=== PATIENT | female | born 1980 | race Caucasian/White ===

== ENCOUNTER 2021-09-26 12:33 | Outpatient (CLI) | payer OTHER, SELFPAY ==
--- NOTE | 2021-09-26 12:49 | MM_ITS ---
WS: [id number] BILATERAL 3D TOMOSYNTHESIS DIGITAL SCREENING MAMMOGRAPHY WITH CAD CLINICAL INFORMATION: SCREENING HISTORY: Screening mammogram. No current complaints. COMPARISON: None. TECHNIQUE: Bilateral CC and MLO views. FINDINGS: Bilateral breast implants are mammographically intact. Scattered fibroglandular densities bilaterally. No suspicious focal mass, asymmetry, calcifications, or architectural distortion. No evidence of malignancy. MM/[id number] IMPRESSION: BI-RADS: 2-Benign FOLLOW UP: 1 Year Follow-up Recommend return to annual screening mammography.
== END 2021-09-26 12:34 | disposition home or self-care (01) ==
LOC: RAD 12:34
PROVIDERS: PCP Family Medicine; Visit Provider Family Medicine
DX: Z12.31 Encounter for screening mammogram for malignant neoplasm of breast (principal)
CPT/HCPCS: 77063; 77067

== ENCOUNTER → 2022-12-14 16:55 | Outpatient (BNVA) | payer OTHER, SELFPAY | PROVIDERS: PCP Family Medicine; Visit Provider Family Medicine | DX: R39.9 Unspecified symptoms and signs involving the genitourinary system (principal); N39.0 Urinary tract infection, site not specified | CPT/HCPCS: 81000 ==

== ENCOUNTER 2023-03-12 13:00 | Outpatient (CLI) | payer OTHER, SELFPAY ==
--- NOTE | 2023-03-12 13:03 | MM_ITS ---
WS: [id number] BILATERAL 3D TOMOSYNTHESIS DIGITAL SCREENING MAMMOGRAPHY WITH CAD CLINICAL INFORMATION: SCREENING HISTORY: Screening mammogram. No current complaints. COMPARISON: 2021 TECHNIQUE: Bilateral CC and MLO views. FINDINGS: Bilateral breast implants appear intact. Scattered fibroglandular densities bilaterally. No suspicious focal mass, asymmetry, calcifications, or architectural distortion. No evidence of malignancy. IMPRESSION: MM/[id number] BI-RADS: 2-Benign FOLLOW UP: 1 Year Follow-up Recommend return to annual screening mammography.
== END 2023-03-12 13:01 | disposition home or self-care (01) ==
LOC: RAD 13:01
PROVIDERS: PCP Family Medicine; Visit Provider Family Medicine
DX: Z12.31 Encounter for screening mammogram for malignant neoplasm of breast (principal)
CPT/HCPCS: 77063; 77067

== ENCOUNTER 2024-04-08 14:28 | Inpatient (IN) | payer OTHER, SELFPAY ==
--- NOTE | 2024-04-08 14:35 | ED.C_ITS ---
HPI - Psych 2 General: Chief Complaint: Psychiatric Symptoms Stated Complaint: 96 Time Seen by Provider: 04/08/24 14:28 Source: patient and police Limitations: no limitations History of Present Illness: 43-year-old female who is here with priscilla ce patient was placed under 96-hour hold by [facility] along with her she has been making multiple suicidal statements she told [facility] she wanted to walk out into traffic she is threatened to kill herself to her kids and her as well. No previous attempts in the past denies any worse improving factors. Associated symptoms: Reports depression and suicidal ideation Related Data Home Medications ?Medication ?Instructions ?Recorded ?Confirmed norgestimate-ethinyl estradiol 1 tab PO DAILY 04/08/24 04/08/24 0.18 mg/0.215mg/0.25mg-35 mcg(28)tablet (Tri-Sprintec (28)) Allergies Allergy/AdvReac Type Severity Reaction Status Date / Time No Known Allergies Allergy Verified 12/14/22 17:01 Review of Systems 2 Const: Denies: fever(s), chills, body aches or change in appetite ENMT: Denies: throat pain or dental pain Card: Denies: chest pain Resp: Denies: dyspnea GI: Denies: abdominal pain, nausea, vomiting or diarrhea Musc: Denies: neck pain or back pain Skin/Breast: Denies: rash Neuro: Denies: headache(s) Psych: Reports: depression and suicidal ideation PFS ED 2 PFSH: Social History Smoking and tobacco/nicotine status: never used tobacco/nicotine Physical Exam 2 Const: COMMON NORMALS: no acute distress, patient oriented x3 and healthy appearing HENMT: COMMON NORMALS: normocephalic and atraumatic HEAD & SCALP: n ormocephalic and atraumatic Neck/C-Spine: COMMON NORMALS: full ROM and supple Chest: COMMONS NORMALS: normal inspection of the chest Resp: COMMON NORMALS: normal respiratory effort Cardio: COMMON NORMALS: regular rate RATE: regular rate Extremity: COMMON NORMALS: normal to inspection and full ROM Neuro: COMMON NORMALS: patient oriented x3, moves all extremities and no focal motor deficits Psych: COMMON NORMALS: mental status grossly normal, Normal thought process present and cooperative THOUGHT PROCESS: Normal thought process present T HOUGHT CONTENT: Yes Suicidality present Skin: COMMON NORMALS: no rashes or lesions noted and no wounds GENERAL SKIN EXAM: no rashes or lesions noted Course 2 Vital Signs: Vital signs: Vital Signs Temperature 98.2 F 04/08/24 14:36 Pulse Rate 70 04/08/24 14:36 Respiratory Rate 18 04/08/24 14:36 Blood Pressure 146/82 04/08/24 14:36 Pulse Oximetry 99 04/08/24 14:36 Oxygen Delivery Me thod Room Air 04/08/24 14:36 [facility] - Psych Medical Decision Making Patient presents here with suicidal ideations she is on a 96-hour hold she is medically cleared spoke to Dr. Manning will admit to the psych [facility] Medical Records I reviewed the patient's medical records. Lab Data I reviewed the patient's lab results. 04/08/24 16:12 04/08/24 16:12 Laboratory Results WBC 8.98 10^3/uL (3.29-11.43) 04/08/24 16:12 RBC 4.83 10^6/uL (3.85-5.65) 04/08/24 16:12 Hgb 13.30 g/dL (11.27-16.99) 04/08/24 16:12 Hct 42.1 % (36-47) 04/08/24 16:12 MCV 87.2 fl (85-98) 04/08/24 16:12 MCH 27.5 pg (27-33) 04/08/24 16:12 MCHC 31.6 g/dL (30-55) 04/08/24 16:12 RDW 14.1 % (12.1-15.1) 04/08/24 16:12 Plt Count 296 10^3/cmm (157-399) 04/08/24 16:12 MPV 9.8 fL (7.4-10.4) 04/08/24 16:12 Neut % (Auto) 72.7 % 04/08/24 16:12 Lymph % (Auto) 22.7 % 04/08/24 16:12 [place] % (Auto) 3.8 % 04/08/24 16:12 Eos % (Auto) 0.1 % 04/08/24 16:12 Baso % (Auto) 0.4 % 04/08/24 16:12 Neut # (Auto) 6.52 10^3/uL (1.8-7.7) 04/08/24 16:12 Lymph # (Auto) 2.0 10^3/uL (0.8-4.8) 04/08/24 16:12 [place] # (Auto) 0.3 10^3/uL (0.2-0.9) 04/08/24 16:12 Eos # (Auto) 0.0 10^3/uL (0.0-0.8) 04/08/24 16:12 Baso # (Auto) 0.0 10^3/uL (0.0-0.1) 04/08/24 16:12 Nucleated RBC % (auto) 0 % 04/08/24 16:12 Nucleated RBCs # 0.0 /100WBC 04/08/24 16:12 No radiology studies performed this visit Discharge Plan Discharge Patient Disposition: Admitted As Inpatient Clinical Impression: Suicidal ideation Condition: Stable Prescriptions: No Action norgestimate-ethinyl estradiol [Tri-Sprintec (28)] 0.18/0.215/0.25 mg-35 mcg (28) tablet 1 tab PO DAILY Referrals: China Walton MD [Primary Care Provider] - Print Language: [place]ese Coding Level of Care Code ED Manager Program for [facility] Kristine
[2024-04-08 14:36] VITALS: BP 146/82; PULSE 70; RESP 18; TEMP 36.8; O2SAT 99
[2024-04-08 14:37] VITALS: BMI 23.7
--- NOTE | 2024-04-08 15:26 | PC.NURSE ---
96 hour hold rights read and reviewed with patient. Patient very tearful at this time, but verbalized understandings. Copy of rights given to patient.
[2024-04-08] MEDS: LORazepam 1 mg Tablet PO (15:46)
[2024-04-08 16:20] LABS: Basophils % 0.4 %; Eosinophils % 0.1 %; Hematocrit 42.1 % (36-47); Lymphocytes % 22.7 %; Mean Corpuscular HGB Conc 31.6 g/dL (30-55); Mean Corpuscular Hemoglobin 27.5 pg (27-33); Mean Corpuscular Volume 87.2 fl (85-98); Mean Platelet Volume 9.8 fL (7.4-10.4); Monocytes # 0.3 10^3/uL (0.2-0.9); Monocytes % 3.8 %; Neutrophils # 6.52 10^3/uL (1.8-7.7); Neutrophils % 72.7 %; Nucleated Red Blood Cells % 0 %; Platelet Count 296 10^3/cmm (157-399); Red Blood Count 4.83 10^6/uL (3.85-5.65); Red Cell Distribution Width 14.1 % (12.1-15.1); White Blood Count 8.98 10^3/uL (3.29-11.43)
--- NOTE | 2024-04-08 16:24 | PC.NURSE ---
CLEMENCIA FROM SECURITY NOTIFIED THIS NURSE THAT HE WAS LOCKING PT WALLET UP IN SECURITY OFFICE DUE TO LARGE AMOUNT OF MONEY FOUND.
[2024-04-08 16:39] LABS: Alanine Aminotransferase 9 U/L (0-33); Albumin Level 4.4 g/dL (3.5-5.2); Alkaline Phosphatase 83 U/L (35-105); Anion Gap 14.3 (5-19); Aspartate Amino Transferase 11 U/L (0-32); Blood Urea Nitrogen 13 mg/dL (6-20); Calcium 9.6 mg/dL (8.5-10.5); Carbon Dioxide 26 mmol/L (22-29); Chloride 102 mmol/L (98-107); Creatinine Clr Calc Pharmacy 118.8105; Globulin 3.4 g/dL (1.3-4.6); Glomerular Filtration Rate 109.1 mL/min (90-130); Glucose 112 mg/dL (65-115); Osmolality Calculated 289 mOsm/kg (285-295); Potassium 3.3 mmol/L (3.5-5.1); Salicylate 4.1 mg/dL (3-10); Sodium 139 mmol/L (136-145); Total Bilirubin 0.5 mg/dL (0.15-1.2); Total Protein 7.8 g/dL (6.6-8.7)
[2024-04-08 16:40] LABS: Acetaminophen < 5.0 ug/mL (10-30); Alcohol Level < 10 mg/dL (0-10)
[2024-04-08 18:10] LABS: HCG Qualitative Urine. Negative (Negative)
[2024-04-08 18:14] VITALS: BP 144/81; PULSE 74; O2SAT 100
[2024-04-08 18:19] VITALS: BP 142/82; PULSE 79; RESP 16; TEMP 37.1; O2SAT 100
[2024-04-08 18:29] LABS: Amphetamines Screen Urine Negative (Negative); Barbiturates Screen Urine Negative (Negative); Benzodiazepines Screen Urine Negative (Negative); Cocaine Screen Urine Negative (Negative); Opiate Screen Urine Negative (Negative); PCP Screen Urine Negative (Negative); THC Screen Urine Negative (Negative)
--- NOTE | 2024-04-08 18:56 | PC.ADMIT ---
[email or web address] [id number] Admission Note: The patient,Elaina Gage,43 y/o, was given written information regarding hospital policies, unit procedures and contact persons. Patient's smoking status: never smoked. Vital Signs - 8 hr 04/08/24 14:36 04/08/24 18:14 04/08/24 18:19 Temperature 98.2 F 98.8 F Pulse Rate 70 74 79 Respiratory Rate 18 16 Blood Pressure 146/82 144/81 142/82 Pulse Oximetry 99 100 100 Oxygen Delivery Method Room Air Room Air 04/08/24 18:22 Temperature Pulse Rate Respiratory Rate Blood Pressure Pulse Oximetry Oxygen Delivery Method Room Air ADMITTED FROM [facility] VIA WHEECHAIR, SECURITY AND ER STAFF AT 1815 ON 96 HOUR INVOLUNTARY HOLD THAT ENDS ON 04/19/24@1435. PT STATES SHE IS HERE DUE TO HER DOING A WELLNESS CHECK ON ME BECAUSE I WAS TAKING A DRIVE. DENIES PAIN. DENIES SI/HI AND AVH AT THIS TIME. PT REPORTS SHE HAS NOT BEEN IN A PSYCHIATRIC UNIT BEFORE. UDS NEGATIVE. PT IS ALERT AND ORIENTATED. SUPPORT VOICED.
[2024-04-08] MEDS: blistex lip oint 7 gm Tube 1 APPLIC TOPICAL (19:44)
[2024-04-08 22:00] VITALS: BP 122/91; PULSE 74; RESP 16; TEMP 37.2; O2SAT 99
[2024-04-09 06:00] VITALS: BP 119/71; PULSE 110; RESP 18; TEMP 36.9; O2SAT 97
--- NOTE | 2024-04-09 13:22 | P.NPUHP_ITS ---
Providers/Chief Complaint 2 Admitting Physician: Zan Manning MD Primary Care Provider: China Walton MD Chief Complaint: 96 HPI NPU History of Present Illness Elaina Gage is a 43 year old female who presented to the emergency department with the following report: Chief Complaint: Psychiatric Symptoms Stated Complaint: 96 Time Seen by Provider: 04/08/24 14:28 Source: patient and police Limitations: no limitations History of Present Illness: 43-year-old female who is here with police patient was placed under 96-hour hold by [facility] along with her she has been making multiple suicidal statements she told [facility] she wanted to walk out into traffic she is threatened to kill herself to her kids and her as well. No previous attempts in the past denies any worse improving factors. Associated symptoms: Reports depression and suicidal ideation. She was admitted to the neuropsychiatric unit for definitive treatment of those issues. She is unknown to [facility] psychiatric services except for some [facility] contacts over the past few days. Otherwise no inpatient or outpatient services. She presented to the emergency department with a negative UDS and unremarkable BAL. Her labs were unremarkable except for she has not had a urinalysis post at this point. But does have a history of UTIs. She presented today reporting: Chief complaint Brought to the hospital following a crisis hotline call due to concerns about potential suicidal behavior after making comments about not wanting to be around anymore and an incident involving melatonin pills. History of the present complaint The patient reports being brought to the hospital after an incident involving her and a crisis hotline. She describes leaving for a drive after a bad day at work and ongoing issues with her . Upon returning home, she was picked up by authorities, although she does not recall all the details. The patient mentions that her called the crisis hotline, which led to her being taken to the hospital. She states that the authorities believed she had attempted to take pills, but she clarifies that she was only trying to take melatonin for sleep. She explains that she had put multiple pills in her hand, which was misinterpreted as an overdose attempt. The patient acknowledges making comments earlier in the week that could be interpreted as suicidal, such as not wanting to be around or deal with her current situation. These comments were made on a Friday, and the incident with the pills occurred on the following Friday. She emphasizes that she did not intend to harm herself and that her actions were misunderstood. The patient describes ongoing conflicts with her , which have been a source of stress and emotional distress. She expresses a desire to leave the house to clear her head, which was not permitted by her family, leading to further tension. The patient has a history of taking Prozac for six months several years ago, during a period of depression related to her father's . She has not been on any other mental health medications since then and denies any significant history of anxiety or depression outside of that period. She reports occasional anxiety in crowded social settings, which has developed over the past four to five years. The patient denies any history of substance abuse, legal issues, or significant mental health diagnoses in her family. She also mentions experiencing nightmares and flashbacks related to her father's , which involved performing CPR after he suffered a heart attack. These episodes have decreased over time but can be triggered by certain emotional situations. The patient describes her current mood as sad but denies any current thoughts of self-harm or harm to others. She also denies experiencing paranoia, hallucinations, or delusions. The patient lives with her and youngest son and has a stable work history, having worked at the [employer] for 22 years. She reports no significant medical history aside from thyroid problems and endometriosis, which is managed with control. She has not been taking her control since being admitted to the hospital. Mental health history Previously on Prozac for approximately 6 months due to depression related to father's , which involved traumatic experiences such as performing CPR. Reports no significant mental health issues outside of this period, except for anxiety in crowded places over the past 4-5 years. No history of psychiatric hospitalization or outpatient treatment. No family history of mental health issues reported. Recent incident involved misunderstanding over taking melatonin, leading to a 96-hour hold after making comments on April 05, 2024, that could be interpreted as suicidal. Denies any intention to harm self. Social history for 19 years, with two children aged 25 and 14. Lives with and youngest son. 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 No smoking or vaping. Consumes alcohol occasionally, with a glass of wine every once in a while, but no history of regular drinking. No history of cannabis or other drug use. No legal issues or history of rehabilitation. Engages in cheerleading and dance club activities in the past. Identifies as heterosexual. Has three dogs and a stray cat. Meds NPU Home Medications ?Medication ?Instructions ?Recorded ?Confirmed ?Last Taken ?Type norgestimate-ethinyl estradiol 1 tab PO DAILY 04/08/24 04/08/24 Unknown History 0.18 mg/0.215mg/0.25mg-35 mcg(28)tablet (Tri-Sprintec (28)) Allergies Allergy/AdvReac Type Severity Reaction Status Date / Time No Known Allergies Allergy Verified 12/14/22 17:01 PFS NPU 2 PFSH: Social History Smoking and tobacco/nicotine status: never used tobacco/nicotine Mental Status Exam 2 MSE Comments: This is a well-nourished, well-developed white female in hospital scrubs with adequate grooming and eye contact. No abnormal movements except for mild to moderate psychomotor retardation. Cooperative with exam in mild to moderate distress. Speech was decreased rate and volume. Mood described as struggling and frustrated, affect congruent, tearful and subdued. Thought process organized. Thought content: Patient denied suicidal or homicidal ideation currently, there were no delusions reported but some paranoia noted, she denied auditory or visual hallucinations. Patient made comments about not wanting to be here anymore, which were interpreted as suicidal, but insists it was an overreaction. Experiences anxiety in social settings, particularly in crowded places, for the past four to five years. Reports feeling sad and has a history of depression, previously treated with Prozac. Uses melatonin for sleep. Stressors include conflict with and issues at work. Describes mood as sad. Attention and concentration were intact and memory appeared mostly reliable but at times may be intentionally evasive but none were formally tested. She is alert and oriented x 3. Her insight was limited. Her judgment is impaired her impulse control appeared limited versus impaired Vitals/I&O/Wt Last Vital Signs Temp 98.5 F 04/09/24 06:00 Pulse 110 H 04/09/24 06:00 Resp 18 04/09/24 06:00 BP 119/71 04/09/24 06:00 Pulse Ox 97 04/09/24 06:00 O2 Del Method Room Air 04/09/24 06:00 Weight last 48 hrs Weight 66.678 kg Data NPU 04/08/24 16:12 04/08/24 16:12 A&P Assessment and plan (1) Suicidal ideation: (2) Parent-child relational problem: (3) Partner relational problem: (4) History of depression: (5) Anxiety disorder: (6) PTSD (post-traumatic stress disorder): Plan This is a 43-year-old white female with a limited history of mental health treatment but significant indication of some posttraumatic reaction to the of their father a few years ago and now in a conflictual relationship with her which has led to some interactions this week that she acknowledges making threatening comments and now she is here on a 96-hour hold. The patient indicates that the situation leading to the patient's hospitalization may have been overblown, as the patient contends that the incident involving melatonin was misinterpreted. The patient acknowledges making comments on Friday that could be interpreted as suicidal, but insists there was no intent to harm herself. There is a history of conflict with her , which may have contributed to the current situation. The patient has a past history of depression, for which she was treated with Prozac for six months, but no current diagnosis of depression or anxiety was explicitly stated during the encounter. The psychologist will review the affidavit and gather collateral information to assess the validity of the claims leading to the patient's hold. 1. Continue current medications. Consider whether an antidepressant is indicated. 2. Encourage individual, group and milieu therapy. 3. Continue every 15 minute checks for safety. 4. Obtain collateral information. 5. Evaluate for safety against the backdrop of the 96-hour hold. 6. Evaluate whether a child line is indicated. PDMP PDMP Reviewed: Not Reviewed Involuntary Hold Information 2 96 Hour Hold: 96 Hour Involuntary Admission: No 96 Hour Hold Ending Date: 0 04/14/24 96 Hour Hold Ending Time: 14:35 Other Hold: Hold End Date: 04/14/24 Attestations NPU 2 Medical Necessity Statement*: Inpatient hospitalization is medically necessary and the clinically appropriate intervention at this time. We will monitor medications and make changes as indicated. We will monitor/initiate medications and make changes as indicated. She will be in the hospital for over 2 midnights. Likely length of stay 2 to 4 days. Coding Level of Care Code Acute Code for Chg Fwd Diagnoses Suicidal ideation R45.851 Parent-child relational problem Z62.820 Partner relational problem Z63.0 History of depression Z86.59 Anxiety disorder F41.9 PTSD (post-traumatic stress disorder) F43.10
[2024-04-09 14:00] VITALS: BP 150/89; PULSE 80; RESP 16; TEMP 37.2; O2SAT 98
[2024-04-09 22:00] VITALS: BP 124/80; PULSE 74; RESP 16; TEMP 37; O2SAT 99
[2024-04-10] MEDS: ibuprofen 600 mg Tablet PO ×2 (05:54→19:25)
[2024-04-10 06:00] VITALS: BP 112/65; PULSE 81; RESP 16; TEMP 36.7; O2SAT 97
--- NOTE | 2024-04-10 08:36 | P.NPUPN_ITS ---
Subjective NPU 2 Subjective: Patient presented today reporting that she is doing fine. We discussed that after reviewing her affidavits and speaking with her there are significant concerns about how accurate and forthright she was being when her reports of what actually transpired. We discussed the fact that the treatment team believes that she did say some things and act in a way that was probably concerning which led to her 14-year-old feeling the need to intervene to avoid her taking some medication. And that this is something we need to explore from the standpoint of whether he needs to have a child line. She continues to report no need for medication denies any significant issues reporting this has been overblown. Mental Status Exam 2 MSE Comments: This is a well-nourished, well-developed white female in hospital scrubs with adequate grooming and eye contact. No abnormal movements except for mild to moderate psychomotor retardation. Cooperative with exam in mild to moderate distress. Speech was decreased rate and volume. Mood described as struggling and frustrated, affect congruent, tearful and subdued. Thought process organized. Thought content: Patient denied suicidal or homicidal ideation currently, there were no delusions reported but some paranoia noted, she denied auditory or visual hallucinations. Patient made comments about not wanting to be here anymore, which were interpreted as suicidal, but insists it was an overreaction. Experiences anxiety in social settings, particularly in crowded places, for the past four to five years. Reports feeling sad and has a history of depression, previously treated with Prozac. Uses melatonin for sleep. Stressors include conflict with and issues at work. Describes mood as sad. Attention and concentration were intact and memory appeared mostly reliable but at times may be intentionally evasive but none were formally tested. She is alert and oriented x 3. Her insight was limited. Her judgment is impaired her impulse control appeared limited versus impaired Vitals/I&O/Wt Last Vital Signs Temp 98.1 F 04/10/24 06:00 Pulse 81 04/10/24 06:00 Resp 16 04/10/24 06:00 BP 112/65 04/10/24 06:00 Pulse Ox 97 04/10/24 06:00 O2 Del Method Room Air 04/09/24 14:00 Weight last 48 hrs Weight 64.682 kg Data NPU 04/08/24 16:12 04/08/24 16:12 A&P Assessment and plan (1) Suicidal ideation: (2) Parent-child relational problem: (3) Partner relational problem: (4) History of depression: (5) Anxiety disorder: (6) PTSD (post-traumatic stress disorder): Plan This is a 43-year-old white female with a limited history of mental health treatment but significant indication of some posttraumatic reaction to the of their father a few years ago and now in a conflictual relationship with her which has led to some interactions this week that she acknowledges making threatening comments and now she is here on a 96-hour hold. The patient indicates that the situation leading to the patient's hospitalization may have been overblown, as the patient contends that the incident involving melatonin was misinterpreted. The patient acknowledges making comments on Friday that could be interpreted as suicidal, but insists there was no intent to harm herself. There is a history of conflict with her , which may have contributed to the current situation. The patient has a past history of depression, for which she was treated with Prozac for six months, but no current diagnosis of depression or anxiety was explicitly stated during the encounter. The psychologist will review the affidavit and gather collateral information to assess the validity of the claims leading to the patient's hold. 1. Continue current medications. Consider whether an antidepressant is indicated. 2. Encourage individual, group and milieu therapy. 3. Continue every 15 minute checks for safety. 4. Obtain collateral information. 5. Evaluate for safety against the backdrop of the 96-hour hold. 6. Evaluate whether a child line is indicated. PDMP PDMP Reviewed: Not Reviewed Involuntary Hold Information 2 96 Hour Hold: 96 Hour Involuntary Admission: No 96 Hour Hold Ending Date: 0 04/14/24 96 Hour Hold Ending Time: 14:35 Other Hold: Hold End Date: 04/14/24 Attestations NPU 2 Medical Necessity Statement*: Inpatient hospitalization is medically necessary and the clinically appropriate intervention at this time. We will monitor medications and make changes as indicated. We will monitor/initiate medications and make changes as indicated. Likely length of stay 2 to 4 days. Coding Level of Care Code Acute Code for Chg Fwd Diagnoses Suicidal ideation R45.851 Parent-child relational problem Z62.820 Partner relational problem Z63.0 History of depression Z86.59 Anxiety disorder F41.9 PTSD (post-traumatic stress disorder) F43.10
[2024-04-10] MEDS: acetaminophen 325 mg Tablet 650 MG PO (11:19)
[2024-04-10 14:00] VITALS: BP 113/76; PULSE 80; RESP 17; TEMP 36.5; O2SAT 98
[2024-04-10] MEDS: NORGESTIMATE PO (16:03)
[2024-04-10] MEDS: ETHINYL ESTRADIOL PO (16:03)
[2024-04-10 21:58] VITALS: BP 115/79; PULSE 83; RESP 16; TEMP 36.9; O2SAT 97
[2024-04-11 06:00] VITALS: BP 111/65; PULSE 93; RESP 16; TEMP 37.1; O2SAT 97
[2024-04-11] MEDS: ETHINYL ESTRADIOL PO (08:17)
[2024-04-11] MEDS: NORGESTIMATE PO (08:17)
[2024-04-11 14:00] VITALS: BP 113/73; PULSE 85; RESP 17; TEMP 36.8; O2SAT 100
--- NOTE | 2024-04-11 14:28 | P.NPUPN_ITS ---
Subjective NPU 2 Subjective: 43-year-old female admitted involuntaril y after having had pills in her hands with the patient making threats to overdose on these pills. The patient had stated that these were comments were overblown. 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 She had stated that she had become upset by this information but reports that she is willing to consider counseling but is not having thoughts of harming herself. She had acknowledged having said stupid things . The patient did not elicit further what she had said to her son that had caused him to feel the need to grab the medications out of her hand. She had reported no need to take medications at this time for depression. She had reported having a conversation with her's 15-year-old son on a daily basis while here. She had expressed hope that she could start psychotherapy again to help her manage her difficult situation with her . Mental Status Exam 2 MSE Comments: This is a well-nourished, well-developed white female in hospital scrubs with adequate grooming and eye contact. No abnormal movements except for mild psychomotor retardation. She was cooperative with exam in milddistress. Her speech was decreased in rate and volume. Mood described as okay. Her affect was mildly restricted. Thought process was linear and organized. Thought content: Patient denied suicidal or homicidal ideation currently. There were no evidence of delusional thinking. She denied auditory or visual hallucinations. She denied any suicidal or homicidal ideation. Attention and concentration were intact and memory appeared mostly reliable but at times may be intentionally evasive but none were formally tested. She is alert and oriented x 3. Her insight was limited. Her judgment is impaired her impulse control appeared guarded at this time. Vitals/I&O/Wt Last Vital Signs Temp 98.7 F 04/11/24 06:00 Pulse 93 04/11/24 06:00 Resp 16 04/11/24 06:00 BP 111/65 04/11/24 06:00 Pulse Ox 97 04/11/24 06:00 O2 Del Method Room Air 04/09/24 14:00 Weight last 48 hrs Weight 64.682 kg Data NPU 04/08/24 16:12 04/08/24 16:12 A&P Assessment and plan (1) Suicidal ideation: (2) Parent-child relational problem: (3) Partner relational problem: (4) History of depression: (5) Anxiety disorder: (6) PTSD (post-traumatic stress disorder): Plan This is a 43-year-old white female with a limited history of mental health treatment but significant indication of some posttraumatic reaction to the of their father a few years ago and now in a conflictual relationship with her which has led to some interactions this week that she acknowledges making threatening comments and now she is here on a 96-hour hold. The patient indicates that the situation leading to the patient's hospitalization may have been overblown, as the patient contends that the incident involving melatonin was misinterpreted. The patient acknowledges making comments on Friday that could be interpreted as suicidal, but insists there was no intent to harm herself. There is a history of conflict with her , which may have contributed to the current situation. The patient has a past history of depression, for which she was treated with Prozac for six months, but no current diagnosis of depression or anxiety was explicitly stated during the encounter. The psychologist will review the affidavit and gather collateral information to assess the validity of the claims leading to the patient's hold. 1. Continue current medications. Consider whether an antidepressant is indicated. 2. Encourage individual, group and milieu therapy. 3. Continue every 15 minute checks for safety. 4. Obtain collateral information. 5. Evaluate for safety against the backdrop of the 96-hour hold. 6. Evaluate whether a child line is indicated. PDMP PDMP Reviewed: Not Reviewed Involuntary Hold Information 2 96 Hour Hold: 96 Hour Involuntary Admission: No 96 Hour Hold Ending Date: 0 04/14/24 96 Hour Hold Ending Time: 14:35 Other Hold: Hold End Date: 04/14/24 Attestations NPU 2 Medical Necessity Statement*: Inpatient hospitalization is medically necessary and the clinically appropriate intervention at this time. We will monitor medications and make changes as indicated. We will monitor/initiate medications and make changes as indicated. Likely length of stay 2 to 4 days. Coding Level of Care Code Acute Code for Chg Fwd Diagnoses Suicidal ideation R45.851 Parent-child relational problem Z62.820 Partner relational problem Z63.0 History of depression Z86.59 Anxiety disorder F41.9 PTSD (post-traumatic stress disorder) F43.10
[2024-04-11 22:00] VITALS: BP 120/75; PULSE 85; RESP 16; TEMP 37; O2SAT 95
[2024-04-12 06:00] VITALS: BP 113/61; PULSE 84; RESP 16; TEMP 37.1; O2SAT 98
[2024-04-12] MEDS: NORGESTIMATE PO (08:29)
[2024-04-12] MEDS: ETHINYL ESTRADIOL PO (08:29)
[2024-04-12 14:00] VITALS: BP 138/78; PULSE 76; RESP 16; TEMP 36.9; O2SAT 93
--- NOTE | 2024-04-12 14:11 | P.NPUDS_ITS ---
Diagnoses at Discharge Discharge Diagnosis (1) Suicidal ideation: Status: Acute (2) Parent-child relational problem: Status: Acute (3) Partner relational problem: Status: Acute (4) History of depression: Status: Acute (5) Anxiety disorder: Status: Acute (6) PTSD (post-traumatic stress disorder): Status: Acute Reason for Visit Reason for Visit: 96 Brief History: History of Present Illness Elaina Gage is a 43 year old female who presented to the emergency department with the following report: Chief Complaint: Psychiatric Symptoms Stated Complaint: 96 Time Seen by Provider: 04/08/24 14:28 Source: patient and police Limitations: no limitations History of Present Illness: 43-year-old female who is here with priscilla ce patient was placed under 96-hour hold by [facility] along with her she has been making multiple suicidal statements she told [facility] she wanted to walk out into traffic she is threatened to kill herself to her kids and her as well. No previous attempts in the past denies any worse improving factors. Associated symptoms: Reports depression and suicidal ideation. She was admitted to the neuropsychiatric unit for definitive treatment of those issues. She is unknown to [facility] psychiatric services except for some [facility] contacts over the past few days. Otherwise no inpatient or outpatient services. She presented to the emergency department with a negative UDS and unremarkable BAL. Her labs were unremarkable except for she has not had a urinalysis post at this point. But does have a history of UTIs. She presented today reporting: Chief complaint Brought to the hospital following a crisis hotline call due to concerns about potential suicidal behavior after making comments about not wanting to be around anymore and an incident involving melatonin pills. History of the present complaint The patient reports being brought to the hospital after an incident involving her and a crisis hotline. She describes leaving for a drive after a bad day at work and ongoing issues with her . Upon returning home, she was picked up by authorities, although she does not recall all the details. The patient mentions that her called the crisis hotline, which led to her being taken to the hospital. She states that the authorities believed she had attempted to take pills, but she clarifies that she was only trying to take melatonin for sleep. She explains that she had put multiple pills in her hand, which was misinterpreted as an overdose attempt. The patient acknowledges making comments earlier in the week that could be interpreted as suicidal, such as not wanting to be around or deal with her current situation. These comments were made on a Friday, and the incident with the pills occurred on the following Friday. She emphasizes that she did not intend to harm herself and that her actions were misunderstood. The patient describes ongoing conflicts with her , which have been a source of stress and emotional distress. She expresses a desire to leave the house to clear her head, which was not permitted by her family, leading to further tension. The patient has a history of taking Prozac for six months several years ago, during a period of depression related to her father's . She has not been on any other mental health medications since then and denies any significant history of anxiety or depression outside of that period. She reports occasional anxiety in crowded social settings, which has developed over the past four to five years. The patient denies any history of substance abuse, legal issues, or significant mental health diagnoses in her family. She also mentions experiencing nightmares and flashbacks related to her father's , which involved performing CPR after he suffered a heart attack. These episodes have decreased over time but can be triggered by certain emotional situations. The patient describes her current mood as sad but denies any current thoughts of self-harm or harm to others. She also denies experiencing paranoia, hallucinations, or delusions. The patient lives with her and youngest son and has a stable work history, having worked at the [employer] office for 22 years. She reports no significant medical history aside from thyroid problems and endometriosis, which is managed with control. She has not been taking her control since being admitted to the hospital. Mental health history Previously on Prozac for approximately 6 months due to depression related to father's , which involved traumatic experiences such as performing CPR. Reports no significant mental health issues outside of this period, except for anxiety in crowded places over the past 4-5 years. No history of psychiatric hospitalization or outpatient treatment. No family history of mental health issues reported. Recent incident involved misunderstanding over taking melatonin, leading to a 96-hour hold after making comments on April 05, 2024, that could be interpreted as suicidal. Denies any intention to harm self. Social history for 19 years, with two children aged 25 and 14. Lives with and youngest son. 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 No smoking or vaping. Consumes alcohol occasionally, with a glass of wine every once in a while, but no history of regular drinking. No history of cannabis or other drug use. No legal issues or history of rehabilitation. Engages in cheerleading and dance club activities in the past. Identifies as heterosexual. Has three dogs and a stray cat. Hospital Course Hospital Course During the hospitalization, the patient had routine laboratory studies which were within normal limits except for a few outliers.? Additionally, there was a general medical evaluation which was also within normal limits and revealed no new acute processes.? At the time of discharge, lethality was denied and mood was improving. She was agreeable to trial of Lexapro to target depression and anxiety on the day of discharge. ? Mood and anxiety were well managed.? The patient endorsed a plan to avoid all drugs of abuse and follow up with the aftercare recommendations of the treatment team.? The patient was evaluated and deemed to be absent credible lethality and had achieved the maximum benefit from an inpatient hospitalization, and so was discharged. ? Involuntary Hold Information 96 Hour Hold: 96 Hour Involuntary Admission: No 96 Hour Hold Ending Date: 04/14/24 96 Hour Hold Ending Time: 14:35 Other Hold: Hold End Date: 04/14/24 Mental Status Exam MSE Comments: This is a well-nourished, well-developed white female in hospital scrubs with adequate grooming and eye contact. No abnormal movements except for mild psychomotor retardation. She was cooperative with exam in no acute distress. Her speech was normal in rate and volume. Mood described as better. Her aff ect was brighter at the time of discharge. Thought process was linear and organized. Thought content: Patient denied suicidal or homicidal ideation currently. There were no evidence of delusional thinking. She denied auditory or visual hallucinations. She denied any suicidal or homicidal ideation. Attention and concentration were intact and memory appeared mostly reliable but at times may be intentionally evasive but none were formally tested. She is alert and oriented x 3. Her insight was limited. Her judgment is fair. Her impulse control appeared adequate at the time of discharge. Discharge Data Studies Completed and Pending: Laboratory Results WBC 8.98 10^3/uL (3.2 9-11.43) 04/08/24 16:12 RBC 4.83 10^6/uL (3.8 5-5.65) 04/08/24 16:12 Hgb 13.30 g/dL (11.27 -16.99) 04/08/24 16:12 Hct 42.1 % (36-47) 04/08/24 16:12 MCV 87.2 fl (85-98) 04/08/24 16:12 MCH 27.5 pg (27-33) 04/08/24 16:12 MCHC 31.6 g/dL (30-55) 04/08/24 16:12 RDW 14.1 % (12.1-15.1 ) 04/08/24 16:12 Plt Count 296 10^3/cmm (157 -399) 04/08/24 16:12 MPV 9.8 fL (7.4-10.4) 04/08/24 16:12 Neut % (Auto) 72.7 % 04/08/24 16:12 Lymph % (Auto) 22.7 % 04/08/24 16:12 Callaway % (Auto) 3.8 % 04/08/24 16:12 Eos % (Auto) 0.1 % 04/08/24 16:12 Baso % (Auto) 0.4 % 04/08/24 16:12 Neut # (Auto) 6.52 10^3/uL (1.8 -7.7) 04/08/24 16:12 Lymph # (Auto) 2.0 10^3/uL (0.8- 4.8) 04/08/24 16:12 Callaway # (Auto) 0.3 10^3/uL (0.2- 0.9) 04/08/24 16:12 Eos # (Auto) 0.0 10^3/uL (0.0- 0.8) 04/08/24 16:12 Baso # (Auto) 0.0 10^3/uL (0.0- 0.1) 04/08/24 16:12 Nucleated RBC % (a uto) 0 % 04/08/24 16:12 Nucleated RBCs # 0.0 /100WBC 04/08/24 16:12 Sodium 139 mmol/L (136-1 45) 04/08/24 16:12 Potassium 3.3 mmol/L (3.5-5 .1) L 04/08/24 16:12 Chloride 102 mmol/L (98-10 7) 04/08/24 16:12 Carbon Dioxide 26 mmol/L (22-29) 04/08/24 16:12 Anion Gap 14.3 (5-19) 04/08/24 16:12 BUN 13 mg/dL (6-20) 04/08/24 16:12 Creatinine 0.6 mg/dL (0.5-0. 9) 04/08/24 16:12 GFR Calculation 109.1 mL/min (90- 130) 04/08/24 16:12 Glucose 112 mg/dL (65-115 ) 04/08/24 16:12 Calculated Osmolal ity 289 mOsm/kg (285- 295) 04/08/24 16:12 Calcium 9.6 mg/dL (8.5-10 .5) 04/08/24 16:12 Total Bilirubin 0.5 mg/dL (0.15-1 .2) 04/08/24 16:12 AST 11 U/L (0-32) 04/08/24 16:12 ALT 9 U/L (0-33) 04/08/24 16:12 Alkaline Phosphata se 83 U/L (35-105) 04/08/24 16:12 Total Protein 7.8 g/dL (6.6-8.7 ) 04/08/24 16:12 Albumin 4.4 g/dL (3.5-5.2 ) 04/08/24 16:12 Globulin 3.4 g/dL (1.3-4.6 ) 04/08/24 16:12 HCG, Qual Negative (Negati ve) 04/08/24 17:49 Salicylates 4.1 mg/dL (3-10) 04/08/24 16:12 Urine Opiates Scre en Negative ng/mL (N egative) 04/08/24 17:49 Acetaminophen < 5.0 ug/mL (10-3 0) L 04/08/24 16:12 Ur Barbiturates Sc reen Negative ng/mL (N egative) 04/08/24 17:49 Ur Phencyclidine S crn Negative ng/mL (N egative) 04/08/24 17:49 Ur Amphetamines Sc reen Negative ng/mL (N egative) 04/08/24 17:49 U Benzodiazepines Scrn Negative ng/mL (N egative) 04/08/24 17:49 Urine Cocaine Scre en Negative ng/mL (N egative) 04/08/24 17:49 U Marijuana (THC) Screen Negative ng/mL (N egative) 04/08/24 17:49 Ethyl Alcohol < 10 mg/dL (0-10) 04/08/24 16:12 Vitals: Last Vital Signs Temp 98.8 F 04/12/24 06:00 Pulse 84 04/12/24 06:00 Resp 16 04/12/24 06:00 BP 113/61 04/12/24 06:00 Pulse Ox 98 04/12/24 06:00 O2 Del Method Room Air 04/09/24 14:00 Discharge Plan Discharge Patient Disposition: Home Condition: Stable Prescriptions: New escitalopram oxalate 10 mg Tablet 10 mg PO DAILY 30 Days Qty: 30 1RF Continued norgestimate-ethinyl estradiol [Tri-Sprintec (28)] 0.18/0.215/0.25 mg-35 mcg (28) tablet 1 tab PO DAILY Discharge Orders: Discharge Order (Routine); Ordered 04/12/24 Ordered By: Erwin Coe Referrals: [facility] [Other] ([address], [place], [facility] [phone]) China Walton MD [Primary Care Provider] - Discharge Diet: Usual diet Discharge Activity: Resume usual activity Patient Instructions: Generalized Anxiety Disorder, Escitalopram (By mouth) (Lexapro), Depression (DC), PTSD (Post Traumatic Stress Disorder) (DC), Help Prevent Suicide (DC), Opioid Safety Discharge Attestations NPU Time Spent in Discharge Care*: less than 30 min Specific Discharge Activities: Specific discharge activities: educating patient, discussing with case making machine operator/social workers/dc planners and documenting/other paperwork Coding Level of Care Code Acute Code for Chg Fwd Diagnoses Suicidal ideation R45.851 Parent-child relational problem Z62.820 Partner relational problem Z63.0 History of depression Z86.59 Anxiety disorder F41.9 PTSD (post-traumatic stress disorder) F43.10
[2024-04-12 14:46] VITALS: BP 138/78; PULSE 76; RESP 16; TEMP 36.9; O2SAT 93
[2024-04-12] MEDS: escitalopram 10 mg Tablet PO (14:53)
== END 2024-04-12 15:44 | disposition home or self-care (01) | DRG 881 ==
LOC: ER 17:01 → NP 17:35
PROVIDERS: Admitting Provider Psychiatry & Neurology Psychiatry; Emergency Provider Emergency Medicine; PCP Family Medicine; Visit Provider Psychiatry & Neurology Psychiatry
DX: F32.A Depression, unspecified (principal); R45.851 Suicidal ideations; Z87.440 Personal history of urinary (tract) infections; Z63.0 Problems in relationship with spouse or partner; F41.9 Anxiety disorder, unspecified; F43.10 Post-traumatic stress disorder, unspecified; Z63.8 Other specified problems related to primary support group
CPT/HCPCS: 36415; 80053; 80306; 80307; 81025; 85025; 97150; 97165; 99285